=== PATIENT | female | born 1980 | race African-American/Black ===

== ENCOUNTER 2017-03-22 18:54 | Emergency (ER) | payer MEDICAID ==
[~2017-03-22] VITALS: Ht 165.1 cm; Wt 90.9 kg
[2017-03-22 18:55] VITALS: Ht 165.1 cm; Wt 90.9 kg
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
[2017-03-23 00:07] VITALS: BP 102/73; PULSE 92; RESP 16
== END 2017-03-23 00:07 | disposition home or self-care (01) ==
LOC: E/R 18:54
DX: S40.022A Contusion of left upper arm, initial encounter (principal); S40.021A Contusion of right upper arm, initial encounter; F17.210 Nicotine dependence, cigarettes, uncomplicated; Y04.8XXA Assault by other bodily force, initial encounter
CPT/HCPCS: 99282

== ENCOUNTER 2018-10-22 01:51 | Emergency (ER) | payer MEDICARE, MEDICAID ==
[~2018-10-22] VITALS: Ht 166.4 cm; Wt 130.6 kg
[2018-10-22 01:52] VITALS: Ht 166.4 cm; Wt 130.6 kg
[2018-10-22] MEDS ORDERED: AMLO5TAB4 PO (04:15)
[2018-10-22 05:01] VITALS: BP 138/85; PULSE 122; RESP 18
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
== END 2018-10-22 05:02 | disposition home or self-care (01) ==
LOC: FTE 01:51
DX: I10 Essential (primary) hypertension (principal); J45.909 Unspecified asthma, uncomplicated; F17.210 Nicotine dependence, cigarettes, uncomplicated; Z76.0 Encounter for issue of repeat prescription
CPT/HCPCS: 99283